=== PATIENT | female | born 1965 | race Caucasian/White ===

== ENCOUNTER → 2018-05-01 | Outpatient (CLI) | payer MEDICAID ==
[2018-05-01 15:43] LABS: CREATININE SERUM 1.07 MG/DL (0.60-1.30)
[2018-05-01 17:04] LABS: ABG BASE EXCESS 0.7 MMOL/L (-2.5-2.5); ABG OXYGEN SATURATION 88 % (94-100); ABG PCO2 45 MMHG (35-45); ABG PH 7.37 (7.37-7.43); ABG PO2 51 MMHG (79-93)
[2018-05-01 17:05] LABS: ALLENS TEST POSITIVE; INSPIRED O2 ROOM AIR; VENTILATOR NO
--- NOTE | 2018-05-01 17:08 | Diagnostic Imaging Report ---
PROCEDURE: US Venous Lower Ext [place]. TECHNIQUE: Multiple real-time grayscale images were obtained over the lower extremities in various projections, bilaterally. Additional duplex Doppler and color Doppler images were also obtained. INDICATION: Lower extremity swelling and pain. The femoropopliteal deep venous system widely patent bilaterally. No deep or superficial venous thrombus. No mass or fluid collection documented. IMPRESSION: This is a normal bilateral lower extremity venous Doppler and ultrasound exam. Dictated by: Dictated on workstation # [id number]
--- NOTE | 2018-05-03 09:23 | Diagnostic Imaging Report ---
PROCEDURE: CT angiography of the chest with contrast. TECHNIQUE: Multiple contiguous axial images were obtained through the chest after uneventful bolus administration of intravenous contrast. 2D reconstructed CTA MIP acquisitions were also performed. INDICATION: Dyspnea, leg swelling and hypoxemia. COMPARISON: No prior studies are available for comparison. FINDINGS: Evaluation of the pulmonary arterial system is without evidence of thromboembolism. No filling defects are seen within the lobar, segmental or central branches. Thoracic aorta is normal caliber. No dissection is seen. No pericardial or pleural fluid is identified. No axillary lymphadenopathy is seen. A lymph node in the prevascular space is slightly prominent measuring 1.9 x 1.3 cm, indeterminate. Small lymph nodes are identified in the grant bilaterally as well as in the subcarinal regions. No pulmonary infiltrates are seen. No nodules or masses are detected. Upper abdomen does show possible enlargement of the liver, not entirely included on this study. There is also diffuse low density throughout the liver consistent with hepatic steatosis. Multiple healed left-sided rib fractures are noted. IMPRESSION: 1. No evidence of pulmonary embolism or thoracic aortic dissection. 2. Nonspecific mild prominence of mediastinal and hilar lymph nodes, etiology indeterminate. Followup could be performed to confirm stability. 3. Hepatomegaly and hepatic steatosis. Dictated by: Dictated on workstation # [id number]
== END ==
LOC: RT 15:04
PROVIDERS: ATTEND Nurse Practitioner Family
DX: J44.9 Chronic obstructive pulmonary disease, unspecified (principal); M79.89 Other specified soft tissue disorders; R09.02 Hypoxemia; R06.00 Dyspnea, unspecified; E66.01 Morbid (severe) obesity due to excess calories
CPT/HCPCS: 36415; 36600; 71275; 82565; 82805; 84520; 93970

== ENCOUNTER → 2018-05-21 | Outpatient (CLI) | payer MEDICAID ==
[~2018-05-21] MED LIST: RT-ALBUTEROL SULF 2.5 MG/3 ML PRE-MIX VIAL INH ONE
== END ==
LOC: EDUNIT# 05-01 15:01 → RT 10:03
PROVIDERS: ATTEND Nurse Practitioner Family
DX: J44.9 Chronic obstructive pulmonary disease, unspecified (principal)
CPT/HCPCS: 94060; 94726; 94729